=== PATIENT | female | born 1940 | race African-American/Black ===

== ENCOUNTER 2021-02-04 22:58 | Inpatient (IN) | payer MEDICARE ==
[~2021-02-04] VITALS: Ht 167.6 cm; Wt 87.5 kg
[2021-02-05] VITALS (61 sets, daily range): BP systolic 92–155; BP diastolic 27–82
[2021-02-05 00:32] LABS: HEMATOCRIT. 40.1 % (36.0-48.0); HEMOGLOBIN. 13.1 g/dL (12.0-16.0); MEAN CORPUSCULAR HEMOGLOBIN 30.4 pg (28.0-32.0); MEAN CORPUSCULAR VOLUME 92.8 fL (81.0-99.0); MEAN PLATELET VOLUME 9.8 fl (7.4-10.4); PLATELET 192 x1000/uL (130-400); RED BLOOD CELL COUNT 4.32 mill/uL (4.2-5.4); RED CELL DISTRIBUTION WIDTH 14.6 % (11.6-14.6)
[2021-02-05 00:42] LABS: CHLORIDE 103 mEq/L (98-107)
[2021-02-05 00:47] LABS: ETHANOL BLOOD < 10 mg/dL
[2021-02-05 01:57] LABS: CLARITY URINE TURBID (CLEAR); COLOR URINE YELLOW (YELLOW); KETONES URINE 2+ (NEGATIVE); LEUKOCYTE ESTERASE URINE 2+ (NEGATIVE); NITRITE URINE POSITIVE (NEGATIVE); OCCULT BLOOD URINE 3+ (NEGATIVE); PROTEIN URINE 3+ (NEGATIVE); SPECIFIC GRAVITY URINE 1.026 (1.005-1.030)
[2021-02-05 02:24] LABS: *BARBITURATES SCREEN URINE NEGATIVE (NEGATIVE); *BENZODIAZEPINES SCREEN URINE NEGATIVE (NEGATIVE); *COCAINE SCREEN URINE NEGATIVE (NEGATIVE)
[2021-02-05 02:25] LABS: *AMPHETAMINES SCREEN URINE NEGATIVE (NEGATIVE); CANNABINOID URINE SCREEN NEGATIVE (NEGATIVE); METHADONE URINE SCREEN NEGATIVE (NEGATIVE); OPIATES URINE SCREEN NEGATIVE (NEGATIVE); PHENCYCLIDINE URINE SCREEN NEGATIVE (NEGATIVE)
[2021-02-05] MEDS ORDERED: CEFTRIAXONE 1 G PREMIX 50 ML IV ONE (03:30)
[2021-02-05 03:36] LABS: PLATELET ESTIMATE NORMAL
[2021-02-05] MEDS ORDERED: SODIUM CHLORIDE 0.9% 100 ML IV ONE (04:15)
[2021-02-05] MEDS ORDERED: IOHEXOL-350 100 ML BOTTLE ONE (05:38)
[2021-02-05] MEDS ORDERED: MANNITOL 12.5G (25%) VIAL 50ML IV ONE (07:30)
[2021-02-05] MEDS ORDERED: IPRATROPIUM/ALBUTEROL 0.5-3(2.5)MG/3ML NEB NEB PRN (07:45)
[2021-02-05] MEDS ORDERED: NITROGLYCERIN 0.4MG TABLET SL SL PRN (07:45)
[2021-02-05] MEDS ORDERED: DEXTROSE 50% WATER 50ML SYRINGE IV PRN (07:45)
[2021-02-05] MEDS ORDERED: ACETAMINOPHEN 650MG SUPP PR PRN ×2 (07:45)
[2021-02-05] MEDS ORDERED: ONDANSETRON HCL 4MG/2ML INJ IV PRN (07:45)
[2021-02-05 08:25] LABS: FOLIC ACID (FOLATE) SERUM 8.5 ng/mL (>5.38)
[2021-02-05] MEDS ORDERED: CEFTRIAXONE 1 G PREMIX 50 ML IV SCH (09:00)
[2021-02-05] MEDS ORDERED: NICARDIPINE 100 MG in SODIUM CHLORIDE 0.9% 60 ML IV PRN (09:45)
[2021-02-05] MEDS ORDERED: MORPHINE SULFATE 10 MG/ML CPJ IV NR (10:00)
[2021-02-05] MEDS: MUPIROCIN 2% OINT 22GM TOP SCH ×2 (10:54→21:47)
[2021-02-05] MEDS: DEXT 5%/LACTATED RINGERS 1,000 ML IV SCH (10:55)
[2021-02-05] MEDS ORDERED: MORPHINE SULFATE 2 MG/ML CPJ (NOT FOR IM USE) IV PRN (11:00)
[2021-02-05] MEDS ORDERED: NALOXONE HCL 0.4MG/ML VIAL IV PRN (11:00)
[2021-02-05] MEDS: NICARDIPINE 100 MG in SODIUM CHLORIDE 0.9% 60 ML IV PRN (11:19)
[2021-02-05] MEDS: CEFAZOLIN 1000MG PREMIX 50 ML IV SCH ×2 (11:25→18:13)
[2021-02-05] MEDS: BLOOD SUGAR DIAGNOSTIC STRIP TEST SCH ×3 (12:22→21:46)
[2021-02-05] MEDS: DEXAMETHASONE 4MG/ML 1ML VIAL IV SCH ×2 (12:32→17:15)
[2021-02-05] MEDS: PANTOPRAZOLE SODIUM 40 MG/VIAL IV SCH (12:32)
[2021-02-05] MEDS: INSULIN LISPRO 100 UNITS/ML SUBCUT SCH ×3 (12:33→21:46)
[2021-02-05] MEDS: LEVETIRACETAM 500MG PREMIX 100 ML IV SCH ×2 (12:43→21:45)
[2021-02-05] MEDS: INSULIN GLARGINE UD 100 UNITS/ML SYR SUBCUT SCH ×2 (13:44→21:47)
[2021-02-05] MEDS ORDERED: CEFAZOLIN SODIUM 1000MG/VIAL IV SCH (14:00)
[2021-02-05] MEDS: LEVOFLOXACIN 500MG PREMIX 100 ML IV SCH (14:23)
[2021-02-05] MEDS ORDERED: IPRATROPIUM/ALBUTEROL 0.5-3(2.5)MG/3ML NEB HHN PRN (18:30)
[2021-02-05 20:58] LABS: TOTAL IRON BINDING CAPACITY 360 ug/dL (250-450)
[2021-02-05 21:01] LABS: CREATINE KINASE 69 IU/L (26-192)
[2021-02-05 21:02] LABS: CREATINE KINASE MB FRACTION < 1.0 ng/mL (0.5-3.6)
[2021-02-06] VITALS (99 sets, daily range): BP systolic 85–144; BP diastolic 41–104
[2021-02-06] MEDS: DEXT 5%/LACTATED RINGERS 1,000 ML IV SCH ×2 (00:25→17:46)
[2021-02-06] MEDS: DEXAMETHASONE 4MG/ML 1ML VIAL IV SCH ×2 (00:25→05:42)
[2021-02-06 00:36] LABS: CREATINE KINASE 71 IU/L (26-192)
[2021-02-06 00:37] LABS: CREATINE KINASE MB FRACTION < 1.0 ng/mL (0.5-3.6)
[2021-02-06] MEDS: CEFAZOLIN 1000MG PREMIX 50 ML IV SCH ×3 (03:26→18:42)
[2021-02-06] MEDS ORDERED: CEFTRIAXONE 1,000 MG in DEXTROSE 5% WATER 50 ML IV SCH (05:00)
[2021-02-06] MEDS: MUPIROCIN 2% OINT 22GM TOP SCH ×3 (05:42→21:27)
[2021-02-06] MEDS: BLOOD SUGAR DIAGNOSTIC STRIP TEST SCH ×4 (06:17→21:26)
[2021-02-06] MEDS: INSULIN LISPRO 100 UNITS/ML SUBCUT SCH ×4 (06:18→21:30)
[2021-02-06 06:19] LABS: CHLORIDE 108 mEq/L (98-107)
[2021-02-06 06:23] LABS: HEMATOCRIT. 32.3 % (36.0-48.0); HEMOGLOBIN. 10.9 g/dL (12.0-16.0); MEAN CORPUSCULAR HEMOGLOBIN 31.3 pg (28.0-32.0); MEAN CORPUSCULAR VOLUME 92.8 fL (81.0-99.0); RED BLOOD CELL COUNT 3.48 mill/uL (4.2-5.4); RED CELL DISTRIBUTION WIDTH 14.6 % (11.6-14.6)
[2021-02-06 06:29] LABS: PHOSPHORUS 1.1 mg/dL (2.5-4.9)
[2021-02-06 06:30] LABS: LDL CHOLESTEROL 92 mg/dL (5-100)
[2021-02-06 06:32] LABS: HDL CHOLESTEROL 51 mg/dL (40-59)
[2021-02-06 06:46] LABS: INR 1.2; PROTHROMBIN TIME 12.4 sec (9.6-11.0)
[2021-02-06 08:37] LABS: PLATELET 157 x1000/uL (130-400)
[2021-02-06 08:47] LABS: PLATELET ESTIMATE NORMAL
[2021-02-06] MEDS: LEVETIRACETAM 500MG PREMIX 100 ML IV SCH ×2 (09:52→21:26)
[2021-02-06] MEDS: PANTOPRAZOLE SODIUM 40 MG/VIAL IV SCH (09:52)
[2021-02-06 10:29] LABS: BG BASE EXCESS 0.1 mmol/L (-2.0-2.0); BG CARBOXYHEMOGLOBIN 0.7 % (0.5-1.5); BG DEOXYHEMOGLOBIN 4.5 % (0.0-5.0); BG FRACTION INSPIRED OXYGEN 28; BG HCO3 ACT 24.4 mmol/L (22.0-26.0); BG METHEMOGLOBIN 0.3 % (0.0-1.5); BG OXYGEN SATURATION 95.5 % (92.0-98.5); BG OXYHEMOGLOBIN 94.5 % (94.0-97.0); BG PCO2 37.9 mmHg (35.0-45.0); BG PH 7.426 (7.350-7.450); BG PO2 80.4 mmHg (75.0-100.0); BG SAMPLE SITE LEFT RADIAL; BG VENT MODE NASAL CANNULA
[2021-02-06] MEDS: INSULIN GLARGINE UD 100 UNITS/ML SYR SUBCUT SCH ×2 (10:41→21:27)
[2021-02-06] MEDS ORDERED: SODIUM CHLORIDE 0.9% 200 ML IV NR (12:45)
[2021-02-06] MEDS ORDERED: SODIUM CHLORIDE 0.9% 1000ML BAG (SEPSIS BOLUS) IV ONE (12:45)
[2021-02-06] MEDS ORDERED: MORPHINE SULFATE 2 MG/ML CPJ (NOT FOR IM USE) IV NR (12:45)
[2021-02-06] MEDS: LEVOFLOXACIN 500MG PREMIX 100 ML IV SCH (14:18)
[2021-02-07] VITALS (93 sets, daily range): BP systolic 91–161; BP diastolic 44–102
[2021-02-07] MEDS: CEFAZOLIN 1000MG PREMIX 50 ML IV SCH ×2 (02:48→12:00)
[2021-02-07 05:57] LABS: HEMOGLOBIN. 11.4 g/dL (12.0-16.0); MEAN CORPUSCULAR HEMOGLOBIN 30.9 pg (28.0-32.0); MEAN CORPUSCULAR VOLUME 92.4 fL (81.0-99.0); MEAN PLATELET VOLUME 10.9 fl (7.4-10.4); PLATELET 126 x1000/uL (130-400); RED BLOOD CELL COUNT 3.68 mill/uL (4.2-5.4); RED CELL DISTRIBUTION WIDTH 15.1 % (11.6-14.6)
[2021-02-07] MEDS: BLOOD SUGAR DIAGNOSTIC STRIP TEST SCH ×4 (06:08→20:17)
[2021-02-07] MEDS: INSULIN LISPRO 100 UNITS/ML SUBCUT SCH ×4 (06:09→20:18)
[2021-02-07 06:12] LABS: CHLORIDE 111 mEq/L (98-107)
[2021-02-07] MEDS: MUPIROCIN 2% OINT 22GM TOP SCH ×3 (06:15→23:25)
[2021-02-07] MEDS: LEVETIRACETAM 500MG PREMIX 100 ML IV SCH ×2 (08:47→20:13)
[2021-02-07] MEDS: PANTOPRAZOLE SODIUM 40 MG/VIAL IV SCH (08:47)
[2021-02-07] MEDS: DEXT 5%/LACTATED RINGERS 1,000 ML IV SCH (08:47)
[2021-02-07] MEDS: INSULIN GLARGINE UD 100 UNITS/ML SYR SUBCUT SCH ×2 (10:00→22:00)
[2021-02-07 10:33] LABS: PLATELET ESTIMATE SLIGHTLY DECREASED
[2021-02-07] MEDS ORDERED: MORPHINE SULFATE 2 MG/ML CPJ (NOT FOR IM USE) IV PRN (11:00)
[2021-02-07] MEDS: LEVOFLOXACIN 500MG PREMIX 100 ML IV SCH (14:45)
[2021-02-08] VITALS (95 sets, daily range): BP systolic 102–159; BP diastolic 39–116
[2021-02-08] MEDS: NICARDIPINE 100 MG in SODIUM CHLORIDE 0.9% 60 ML IV PRN (01:33)
[2021-02-08] MEDS: DEXT 5%/LACTATED RINGERS 1,000 ML IV SCH ×2 (03:00→20:19)
[2021-02-08] MEDS: MUPIROCIN 2% OINT 22GM TOP SCH ×2 (06:00→14:00)
[2021-02-08] MEDS: BLOOD SUGAR DIAGNOSTIC STRIP TEST SCH ×4 (06:20→20:23)
[2021-02-08] MEDS: INSULIN LISPRO 100 UNITS/ML SUBCUT SCH ×4 (06:21→21:05)
[2021-02-08] MEDS: PANTOPRAZOLE SODIUM 40 MG/VIAL IV SCH (08:42)
[2021-02-08] MEDS: LEVETIRACETAM 500MG PREMIX 100 ML IV SCH ×2 (08:42→20:17)
[2021-02-08] MEDS: INSULIN GLARGINE UD 100 UNITS/ML SYR SUBCUT SCH ×2 (10:00→21:06)
[2021-02-08] MEDS: LEVOFLOXACIN 500MG PREMIX 100 ML IV SCH (15:58)
[2021-02-09] VITALS (100 sets, daily range): BP systolic 95–160; BP diastolic 42–88
[2021-02-09] MEDS: BLOOD SUGAR DIAGNOSTIC STRIP TEST SCH ×4 (05:59→20:58)
[2021-02-09] MEDS: INSULIN LISPRO 100 UNITS/ML SUBCUT SCH ×4 (06:00→21:19)
[2021-02-09] MEDS: NICARDIPINE 100 MG in SODIUM CHLORIDE 0.9% 60 ML IV PRN (07:28)
[2021-02-09] MEDS: PANTOPRAZOLE SODIUM 40 MG/VIAL IV SCH (08:21)
[2021-02-09] MEDS: LEVETIRACETAM 500MG PREMIX 100 ML IV SCH ×2 (08:21→20:58)
[2021-02-09] MEDS: INSULIN GLARGINE UD 100 UNITS/ML SYR SUBCUT SCH ×2 (10:00→21:17)
[2021-02-09] MEDS: DEXT 5%/LACTATED RINGERS 1,000 ML IV SCH ×2 (11:30→14:38)
[2021-02-09] MEDS: AMLODIPINE 10MG TABLET PO SCH (13:00)
[2021-02-09] MEDS: LEVOFLOXACIN 500MG PREMIX 100 ML IV SCH (14:37)
[2021-02-10] VITALS (91 sets, daily range): BP systolic 103–151; BP diastolic 55–100
[2021-02-10] MEDS: BLOOD SUGAR DIAGNOSTIC STRIP TEST SCH ×4 (05:55→21:30)
[2021-02-10] MEDS: INSULIN LISPRO 100 UNITS/ML SUBCUT SCH ×4 (06:01→21:00)
[2021-02-10] MEDS: DEXT 5%/LACTATED RINGERS 1,000 ML IV SCH (06:01)
[2021-02-10] MEDS: PANTOPRAZOLE SODIUM 40 MG/VIAL IV SCH (08:50)
[2021-02-10] MEDS: LEVETIRACETAM 500MG PREMIX 100 ML IV SCH ×2 (08:50→21:42)
[2021-02-10] MEDS: AMLODIPINE 10MG TABLET PO SCH ×2 (08:51→08:54)
[2021-02-10] MEDS: INSULIN GLARGINE UD 100 UNITS/ML SYR SUBCUT SCH ×2 (09:02→21:43)
[2021-02-10] MEDS: NICARDIPINE 100 MG in SODIUM CHLORIDE 0.9% 60 ML IV PRN (12:58)
[2021-02-10] MEDS: LEVOFLOXACIN 500MG PREMIX 100 ML IV SCH (16:32)
[2021-02-11] VITALS (90 sets, daily range): BP systolic 96–142; BP diastolic 54–90
[2021-02-11] MEDS: DEXT 5%/LACTATED RINGERS 1,000 ML IV SCH ×2 (01:34→19:18)
[2021-02-11] MEDS: BLOOD SUGAR DIAGNOSTIC STRIP TEST SCH ×4 (06:23→20:20)
[2021-02-11] MEDS: INSULIN LISPRO 100 UNITS/ML SUBCUT SCH ×4 (06:23→20:31)
[2021-02-11] MEDS: LEVETIRACETAM 500MG PREMIX 100 ML IV SCH ×2 (08:30→20:31)
[2021-02-11] MEDS: PANTOPRAZOLE SODIUM 40 MG/VIAL IV SCH (08:30)
[2021-02-11] MEDS: AMLODIPINE 10MG TABLET PO SCH (08:31)
[2021-02-11] MEDS: INSULIN GLARGINE UD 100 UNITS/ML SYR SUBCUT SCH ×2 (10:00→21:05)
[2021-02-11] MEDS ORDERED: AMLODIPINE 5MG TABLET PO SCH (10:45)
[2021-02-11] MEDS ORDERED: AMLODIPINE 5MG TABLET PO NR (10:45)
[2021-02-12] VITALS (52 sets, daily range): BP systolic 100–132; BP diastolic 30–71
[2021-02-12] MEDS: DEXT 5%/LACTATED RINGERS 1,000 ML IV SCH ×2 (00:20→08:07)
[2021-02-12] MEDS: INSULIN LISPRO 100 UNITS/ML SUBCUT SCH ×4 (05:25→20:23)
[2021-02-12] MEDS: BLOOD SUGAR DIAGNOSTIC STRIP TEST SCH ×4 (05:25→20:23)
[2021-02-12 06:01] LABS: HEMATOCRIT. 31.7 % (36.0-48.0); HEMOGLOBIN. 10.6 g/dL (12.0-16.0); MEAN CORPUSCULAR HEMOGLOBIN 30.3 pg (28.0-32.0); MEAN CORPUSCULAR VOLUME 90.6 fL (81.0-99.0); MEAN PLATELET VOLUME 10.2 fl (7.4-10.4); PLATELET 215 x1000/uL (130-400); RED CELL DISTRIBUTION WIDTH 14.7 % (11.6-14.6)
[2021-02-12 06:10] LABS: CHLORIDE 106 mEq/L (98-107)
[2021-02-12] MEDS: PANTOPRAZOLE SODIUM 40 MG/VIAL IV SCH (08:07)
[2021-02-12] MEDS: LEVETIRACETAM 500MG PREMIX 100 ML IV SCH ×2 (08:07→20:23)
[2021-02-12] MEDS ORDERED: MORPHINE SULFATE 2 MG/ML CPJ (NOT FOR IM USE) IV PRN (09:15)
[2021-02-12] MEDS ORDERED: POTASSIUM CHLORIDE INJ 40 MEQ in DEXT 5% WATER 250 ML IV ONE (09:30)
[2021-02-12] MEDS ORDERED: POTASSIUM CHLORIDE 20MEQ TABLET SR PO SCH (09:30)
[2021-02-12] MEDS: INSULIN GLARGINE UD 100 UNITS/ML SYR SUBCUT SCH ×2 (10:00→21:51)
[2021-02-12] MEDS: KCL 20MEQ/100ML PREMIX 100 ML IV SCH ×2 (11:15→13:57)
[2021-02-12] MEDS: AMLODIPINE 5MG TABLET PO SCH (11:16)
[2021-02-12 16:33] LABS: PLATELET ESTIMATE NORMAL
[2021-02-12] MEDS ORDERED: INSULIN GLARGINE UD 100 UNITS/ML SYR SUBCUT SCH (17:00)
[2021-02-12] MEDS ORDERED: NALOXONE HCL 0.4MG/ML VIAL IV PRN (17:30)
[2021-02-13] VITALS (24 sets, daily range): BP systolic 122–159; BP diastolic 63–84
[2021-02-13] MEDS: INSULIN LISPRO 100 UNITS/ML SUBCUT SCH ×4 (07:00→21:58)
[2021-02-13] MEDS: BLOOD SUGAR DIAGNOSTIC STRIP TEST SCH ×4 (07:06→21:55)
[2021-02-13] MEDS: PANTOPRAZOLE SODIUM 40 MG/VIAL IV SCH (08:30)
[2021-02-13] MEDS: LEVETIRACETAM 500MG PREMIX 100 ML IV SCH ×2 (08:30→21:57)
[2021-02-13] MEDS: AMLODIPINE 5MG TABLET PO SCH (08:30)
[2021-02-13 12:02] LABS: INR 1.1; PROTHROMBIN TIME 12.2 sec (9.6-11.0)
[2021-02-13] MEDS: DEXT 5%/LACTATED RINGERS 1,000 ML IV SCH (17:18)
[2021-02-13] MEDS: INSULIN GLARGINE UD 100 UNITS/ML SYR SUBCUT SCH (22:11)
[2021-02-14] VITALS (77 sets, daily range): BP systolic 91–178; BP diastolic 38–97
[2021-02-14 05:45] LABS: HEMATOCRIT. 31.3 % (36.0-48.0); HEMOGLOBIN. 9.9 g/dL (12.0-16.0); MEAN CORPUSCULAR HEMOGLOBIN 28.6 pg (28.0-32.0); MEAN CORPUSCULAR VOLUME 90.3 fL (81.0-99.0); MEAN PLATELET VOLUME 8.8 fl (7.4-10.4); PLATELET 299 x1000/uL (130-400); RED BLOOD CELL COUNT 3.46 mill/uL (4.2-5.4); RED CELL DISTRIBUTION WIDTH 14.5 % (11.6-14.6)
[2021-02-14 05:52] LABS: CHLORIDE 105 mEq/L (98-107)
[2021-02-14 06:04] LABS: PHOSPHORUS 2.1 mg/dL (2.5-4.9)
[2021-02-14] MEDS: BLOOD SUGAR DIAGNOSTIC STRIP TEST SCH ×4 (06:28→21:31)
[2021-02-14] MEDS: INSULIN LISPRO 100 UNITS/ML SUBCUT SCH ×4 (06:29→21:47)
[2021-02-14] MEDS ORDERED: GENTAMICIN SULF 40MG/ML 2ML VIAL ONE (06:38)
[2021-02-14] MEDS ORDERED: LIDOCAINE HCL/EPINEPHRINE 1%-EPI 1:100,000 30 ML VIAL INFIL ONE (06:38)
[2021-02-14] MEDS ORDERED: BACITRACIN 15GM TUBE TOP ONE (06:39)
[2021-02-14] MEDS ORDERED: THROMBIN (BOVINE) 5000 UNITS/VIAL TOP ONE (06:39)
[2021-02-14] MEDS: NICARDIPINE 100 MG in SODIUM CHLORIDE 0.9% 60 ML IV PRN (08:38)
[2021-02-14] MEDS: AMLODIPINE 5MG TABLET PO SCH (08:48)
[2021-02-14] MEDS: DEXT 5%/LACTATED RINGERS 1,000 ML IV SCH (08:52)
[2021-02-14] MEDS: LEVETIRACETAM 500MG PREMIX 100 ML IV SCH ×2 (08:52→20:56)
[2021-02-14] MEDS: PANTOPRAZOLE SODIUM 40 MG/VIAL IV SCH (08:53)
[2021-02-14] MEDS ORDERED: POTASSIUM PHOS,M-BASIC-D-BASIC 20 MMOL in DEXT 5% WATER 243.3333 ML IV NR (09:00)
[2021-02-14] MEDS ORDERED: KCL 20MEQ/100ML PREMIX 100 ML IV NR (09:00)
[2021-02-14] MEDS ORDERED: MAGNESIUM 2 G PREMIX 50 ML IV NR (09:00)
[2021-02-14 09:25] LABS: INR 1.1; PROTHROMBIN TIME 11.5 sec (9.6-11.0)
[2021-02-14 10:33] LABS: BG BASE EXCESS 1.6 mmol/L (-2.0-2.0); BG CARBOXYHEMOGLOBIN 0.4 % (0.5-1.5); BG DEOXYHEMOGLOBIN 3.4 % (0.0-5.0); BG FRACTION INSPIRED OXYGEN 40; BG HCO3 ACT 25.6 mmol/L (22.0-26.0); BG METHEMOGLOBIN 0.3 % (0.0-1.5); BG OXYGEN SATURATION 96.6 % (92.0-98.5); BG OXYHEMOGLOBIN 95.9 % (94.0-97.0); BG PCO2 37.7 mmHg (35.0-45.0); BG PH 7.449 (7.350-7.450); BG PO2 98.9 mmHg (75.0-100.0); BG SAMPLE SITE RIGHT RADIAL; BG TOTAL HEMOGLOBIN 11.4 g/dL (12.0-18.0); BG VENT MODE NASAL CANNULA
[2021-02-14] MEDS ORDERED: SODIUM CHLORIDE 0.9% 500 ML IV ONE (18:00)
[2021-02-14] MEDS: INSULIN GLARGINE UD 100 UNITS/ML SYR SUBCUT SCH (21:46)
[2021-02-15] VITALS (76 sets, daily range): BP systolic 93–160; BP diastolic 53–98
[2021-02-15] MEDS: DEXT 5%/LACTATED RINGERS 1,000 ML IV SCH ×3 (00:15→10:00)
[2021-02-15 01:12] LABS: PLATELET ESTIMATE NORMAL
[2021-02-15] MEDS: BLOOD SUGAR DIAGNOSTIC STRIP TEST SCH ×4 (06:22→20:13)
[2021-02-15] MEDS: INSULIN LISPRO 100 UNITS/ML SUBCUT SCH ×4 (06:23→21:38)
[2021-02-15] MEDS ORDERED: THROMBIN (BOVINE) 5000 UNITS/VIAL TOP ONE (06:50)
[2021-02-15] MEDS ORDERED: POLYMYXIN B SULFATE 500000 UNITS/VIAL ONE (06:51)
[2021-02-15] MEDS ORDERED: NEOSTIGMINE METHYLSULFATE 1MG/ML 10 ML VIAL ONE ×2 (07:34→09:19)
[2021-02-15] MEDS ORDERED: ONDANSETRON HCL 4MG/2ML INJ ONE (07:34)
[2021-02-15] MEDS ORDERED: MIDAZOLAM HCL 2 MG/2 ML VIAL ONE (07:34)
[2021-02-15] MEDS ORDERED: PROPOFOL 200MG/20ML VIAL IV ONE (07:34)
[2021-02-15] MEDS ORDERED: FENTANYL CITRATE/PF 50MCG/ML 2ML VIAL ONE (07:34)
[2021-02-15] MEDS ORDERED: GLYCOPYRROLATE 0.2 MG/ML 2ML VIAL ONE ×3 (07:37→09:25)
[2021-02-15] MEDS ORDERED: ROCURONIUM BROMIDE 10MG/ML VIAL 5ML IV ONE ×2 (08:14→09:16)
[2021-02-15] MEDS: AMLODIPINE 5MG TABLET PO SCH (09:00)
[2021-02-15] MEDS ORDERED: PHENYLEPHRINE HCL 10 MG/ML 1ML (IV VIAL) IV ONE (09:19)
[2021-02-15] MEDS ORDERED: BACITRACIN/POLYMYXIN B SULFATE OINT 28.35GM TOP ONE (09:26)
[2021-02-15] MEDS ORDERED: NALOXONE HCL 0.4MG/ML VIAL IV PRN (09:30)
[2021-02-15] MEDS: LEVETIRACETAM 500MG PREMIX 100 ML IV SCH ×2 (09:41→20:48)
[2021-02-15] MEDS: PANTOPRAZOLE SODIUM 40 MG/VIAL IV SCH (09:41)
[2021-02-15 10:35] LABS: CHLORIDE 106 mEq/L (98-107)
[2021-02-15 10:40] LABS: HEMATOCRIT. 30.4 % (36.0-48.0); HEMOGLOBIN. 10.2 g/dL (12.0-16.0); MEAN CORPUSCULAR HEMOGLOBIN 30.9 pg (28.0-32.0); MEAN CORPUSCULAR VOLUME 91.7 fL (81.0-99.0); MEAN PLATELET VOLUME 8.8 fl (7.4-10.4); PLATELET 295 x1000/uL (130-400); RED BLOOD CELL COUNT 3.31 mill/uL (4.2-5.4); RED CELL DISTRIBUTION WIDTH 14.1 % (11.6-14.6)
[2021-02-15 10:42] LABS: PHOSPHORUS 2.9 mg/dL (2.5-4.9)
[2021-02-15 10:55] LABS: BG BASE EXCESS 4.4 mmol/L (-2.0-2.0); BG DEOXYHEMOGLOBIN 5.7 % (0.0-5.0); BG FRACTION INSPIRED OXYGEN 50; BG HCO3 ACT 30.2 mmol/L (22.0-26.0); BG METHEMOGLOBIN 0.3 % (0.0-1.5); BG OXYGEN SATURATION 94.3 % (92.0-98.5); BG PCO2 51.2 mmHg (35.0-45.0); BG PH 7.389 (7.350-7.450); BG PO2 78.8 mmHg (75.0-100.0); BG SAMPLE SITE LEFT RADIAL; BG TOTAL HEMOGLOBIN 10.2 g/dL (12.0-18.0); BG TOTAL RESPIRATORY RATE 14 b/min; BG VENT MODE VENT - CPAP
[2021-02-15] MEDS: CEFAZOLIN 1000MG PREMIX 50 ML IV SCH ×2 (12:03→19:08)
[2021-02-15 12:29] LABS: PLATELET ESTIMATE NORMAL
[2021-02-15 13:26] LABS: BG BASE EXCESS 4.2 mmol/L (-2.0-2.0); BG CARBOXYHEMOGLOBIN 0.5 % (0.5-1.5); BG DEOXYHEMOGLOBIN 5.1 % (0.0-5.0); BG FRACTION INSPIRED OXYGEN 32; BG HCO3 ACT 30.3 mmol/L (22.0-26.0); BG METHEMOGLOBIN 0.3 % (0.0-1.5); BG OXYGEN SATURATION 94.9 % (92.0-98.5); BG OXYHEMOGLOBIN 94.1 % (94.0-97.0); BG PCO2 52.9 mmHg (35.0-45.0); BG PH 7.376 (7.350-7.450); BG PO2 80.7 mmHg (75.0-100.0); BG SAMPLE SITE LEFT RADIAL; BG TOTAL HEMOGLOBIN 10.8 g/dL (12.0-18.0); BG VENT MODE NASAL CANNULA
[2021-02-15] MEDS ORDERED: CEFAZOLIN SODIUM 1000MG/VIAL IV SCH (14:00)
[2021-02-15] MEDS: METOPROLOL TARTRATE 25MG TABLET NG SCH ×2 (18:47→22:30)
[2021-02-15] MEDS: INSULIN GLARGINE UD 100 UNITS/ML SYR SUBCUT SCH (21:39)
[2021-02-16] VITALS (62 sets, daily range): BP systolic 104–158; BP diastolic 41–84
[2021-02-16] MEDS: CEFAZOLIN 1000MG PREMIX 50 ML IV SCH ×3 (02:14→18:19)
[2021-02-16] MEDS: MORPHINE SULFATE 2 MG/ML CPJ (NOT FOR IM USE) IV PRN ×3 (03:19→12:40)
[2021-02-16 05:52] LABS: CHLORIDE 106 mEq/L (98-107)
[2021-02-16 06:02] LABS: HEMOGLOBIN. 10.3 g/dL (12.0-16.0); MEAN CORPUSCULAR HEMOGLOBIN 30.3 pg (28.0-32.0); MEAN CORPUSCULAR VOLUME 91.3 fL (81.0-99.0); PLATELET 350 x1000/uL (130-400); RED CELL DISTRIBUTION WIDTH 14.7 % (11.6-14.6)
[2021-02-16] MEDS: BLOOD SUGAR DIAGNOSTIC STRIP TEST SCH ×4 (06:07→21:36)
[2021-02-16] MEDS: INSULIN LISPRO 100 UNITS/ML SUBCUT SCH ×4 (06:07→21:37)
[2021-02-16] MEDS: PANTOPRAZOLE SODIUM 40 MG/VIAL IV SCH (08:38)
[2021-02-16] MEDS: AMLODIPINE 5MG TABLET PO SCH (08:38)
[2021-02-16] MEDS: LEVETIRACETAM 500MG PREMIX 100 ML IV SCH ×2 (08:38→20:28)
[2021-02-16] MEDS: METOPROLOL TARTRATE 25MG TABLET NG SCH ×2 (09:00→20:29)
[2021-02-16] MEDS ORDERED: LACTULOSE 20G/30ML UDC PO NR (10:00)
[2021-02-16] MEDS: LOSARTAN POTASSIUM 25 MG TABLET PO SCH (11:07)
[2021-02-16] MEDS: CLONIDINE 0.1MG TABLET PO PRN (18:44)
[2021-02-16] MEDS: LACTULOSE 20G/30ML UDC PO SCH (21:36)
[2021-02-16] MEDS: INSULIN GLARGINE UD 100 UNITS/ML SYR SUBCUT SCH (21:38)
[2021-02-17] VITALS (49 sets, daily range): BP systolic 123–170; BP diastolic 53–88
[2021-02-17] MEDS: CEFAZOLIN 1000MG PREMIX 50 ML IV SCH ×2 (02:27→10:04)
[2021-02-17] MEDS: DEXT 5%/LACTATED RINGERS 1,000 ML IV SCH ×3 (02:50→20:12)
[2021-02-17] MEDS: CLONIDINE 0.1MG TABLET PO PRN (02:59)
[2021-02-17] MEDS: BLOOD SUGAR DIAGNOSTIC STRIP TEST SCH ×4 (06:15→20:12)
[2021-02-17 06:17] LABS: PLATELET ESTIMATE NORMAL
[2021-02-17] MEDS: MORPHINE SULFATE 2 MG/ML CPJ (NOT FOR IM USE) IV PRN (06:32)
[2021-02-17] MEDS: INSULIN LISPRO 100 UNITS/ML SUBCUT SCH ×4 (06:33→20:12)
[2021-02-17] MEDS: LEVETIRACETAM 500MG PREMIX 100 ML IV SCH ×2 (08:57→20:11)
[2021-02-17] MEDS: AMLODIPINE 5MG TABLET PO SCH (08:57)
[2021-02-17] MEDS: LOSARTAN POTASSIUM 25 MG TABLET PO SCH (08:57)
[2021-02-17] MEDS: PANTOPRAZOLE SODIUM 40 MG/VIAL IV SCH (08:57)
[2021-02-17] MEDS: METOPROLOL TARTRATE 25MG TABLET NG SCH ×2 (08:58→20:11)
[2021-02-17] MEDS: METOCLOPRAMIDE HCL 10MG/2ML VIAL IV SCH ×3 (12:27→23:58)
[2021-02-17] MEDS: LACTULOSE 20G/30ML UDC PO SCH (20:11)
[2021-02-17] MEDS: INSULIN GLARGINE UD 100 UNITS/ML SYR SUBCUT SCH (23:58)
[2021-02-18] VITALS (31 sets, daily range): BP systolic 128–174; BP diastolic 65–115
[2021-02-18] MEDS: CLONIDINE 0.1MG TABLET PO PRN ×2 (00:45→06:51)
[2021-02-18] MEDS: METOCLOPRAMIDE HCL 10MG/2ML VIAL IV SCH ×3 (05:51→18:41)
[2021-02-18] MEDS: BLOOD SUGAR DIAGNOSTIC STRIP TEST SCH ×4 (05:51→21:00)
[2021-02-18 06:01] LABS: CHLORIDE 97 mEq/L (98-107)
[2021-02-18] MEDS: INSULIN LISPRO 100 UNITS/ML SUBCUT SCH ×4 (06:05→21:00)
[2021-02-18 06:16] LABS: INR 1.1; PROTHROMBIN TIME 11.7 sec (9.6-11.0)
[2021-02-18 06:22] LABS: HEMATOCRIT. 29.9 % (36.0-48.0); HEMOGLOBIN. 10.2 g/dL (12.0-16.0); MEAN CORPUSCULAR HEMOGLOBIN 30.7 pg (28.0-32.0); MEAN CORPUSCULAR VOLUME 90.4 fL (81.0-99.0); MEAN PLATELET VOLUME 9.2 fl (7.4-10.4); PLATELET 374 x1000/uL (130-400); RED BLOOD CELL COUNT 3.31 mill/uL (4.2-5.4); RED CELL DISTRIBUTION WIDTH 14.1 % (11.6-14.6)
[2021-02-18] MEDS: METOPROLOL TARTRATE 25MG TABLET NG SCH ×2 (08:56→21:00)
[2021-02-18] MEDS: LOSARTAN POTASSIUM 25 MG TABLET PO SCH (08:56)
[2021-02-18] MEDS: AMLODIPINE 5MG TABLET PO SCH (08:56)
[2021-02-18] MEDS: LEVETIRACETAM 500MG PREMIX 100 ML IV SCH (08:56)
[2021-02-18] MEDS: PANTOPRAZOLE SODIUM 40 MG/VIAL IV SCH (08:56)
[2021-02-18] MEDS: DEXT 5%/LACTATED RINGERS 1,000 ML IV SCH (09:15)
[2021-02-18] MEDS ORDERED: BISACODYL 10MG SUPP PR SCH (09:45)
[2021-02-18 09:47] LABS: PLATELET ESTIMATE NORMAL
[2021-02-18] MEDS ORDERED: POTASSIUM CHLORIDE 20MEQ/PACKET PO NR (11:30)
[2021-02-18] MEDS: INSULIN GLARGINE UD 100 UNITS/ML SYR SUBCUT SCH (22:00)
[2021-02-19] MEDS: LACTULOSE 20G/30ML UDC PO SCH ×2 (00:23→21:51)
[2021-02-19] MEDS: LEVETIRACETAM 500MG PREMIX 100 ML IV SCH ×3 (00:23→21:50)
[2021-02-19] MEDS: METOCLOPRAMIDE HCL 10MG/2ML VIAL IV SCH ×5 (00:24→23:55)
[2021-02-19] MEDS: IPRATROPIUM/ALBUTEROL 0.5-3(2.5)MG/3ML NEB HHN SCH ×3 (00:35→17:01)
[2021-02-19 02:56] VITALS: BP 159/77
[2021-02-19 04:00] VITALS: BP 158/78
[2021-02-19] MEDS: DEXT 5%/LACTATED RINGERS 1,000 ML IV SCH ×2 (05:57→21:55)
[2021-02-19] MEDS: BLOOD SUGAR DIAGNOSTIC STRIP TEST SCH ×4 (06:12→21:51)
[2021-02-19] MEDS: INSULIN LISPRO 100 UNITS/ML SUBCUT SCH ×4 (06:39→21:52)
[2021-02-19 08:00] VITALS: BP 176/81
[2021-02-19 08:21] LABS: CHLORIDE 97 mEq/L (98-107)
[2021-02-19 08:41] LABS: HEMOGLOBIN. 10.3 g/dL (12.0-16.0); MEAN CORPUSCULAR HEMOGLOBIN 30.9 pg (28.0-32.0); MEAN CORPUSCULAR VOLUME 90.4 fL (81.0-99.0); PLATELET 380 x1000/uL (130-400); RED BLOOD CELL COUNT 3.32 mill/uL (4.2-5.4); RED CELL DISTRIBUTION WIDTH 14.6 % (11.6-14.6)
[2021-02-19] MEDS: AMLODIPINE 5MG TABLET PO SCH (09:00)
[2021-02-19] MEDS: LOSARTAN POTASSIUM 25 MG TABLET PO SCH (09:00)
[2021-02-19] MEDS: METOPROLOL TARTRATE 25MG TABLET NG SCH ×2 (09:00→12:14)
[2021-02-19] MEDS ORDERED: IOHEXOL-300 100 ML BOTTLE ONE (09:26)
[2021-02-19] MEDS: PANTOPRAZOLE SODIUM 40 MG/VIAL IV SCH ×2 (10:37→21:51)
[2021-02-19 12:00] VITALS: BP 156/77
[2021-02-19] MEDS: NITROGLYCERIN OINT 1GM/INCH UDPKT TD SCH ×2 (12:13→16:42)
[2021-02-19 16:00] VITALS: BP 150/76
[2021-02-19 20:00] VITALS: BP 145/81
[2021-02-19] MEDS: INSULIN GLARGINE UD 100 UNITS/ML SYR SUBCUT SCH (22:59)
[2021-02-20] VITALS: BP 139/80
[2021-02-20] MEDS: NITROGLYCERIN OINT 1GM/INCH UDPKT TD SCH ×2 (01:56→09:59)
[2021-02-20 04:00] VITALS: BP 155/90
[2021-02-20] MEDS: BLOOD SUGAR DIAGNOSTIC STRIP TEST SCH ×2 (06:12→13:00)
[2021-02-20] MEDS: METOCLOPRAMIDE HCL 10MG/2ML VIAL IV SCH ×2 (06:27→12:59)
[2021-02-20] MEDS: INSULIN LISPRO 100 UNITS/ML SUBCUT SCH ×2 (06:31→12:40)
[2021-02-20 07:31] LABS: PLATELET ESTIMATE NORMAL
[2021-02-20 08:00] VITALS: BP 163/91
[2021-02-20] MEDS ORDERED: CEFAZOLIN 1000MG PREMIX 50 ML IV SCH (09:00)
[2021-02-20] MEDS: LEVETIRACETAM 500MG PREMIX 100 ML IV SCH (09:58)
[2021-02-20] MEDS: AMLODIPINE 5MG TABLET PO SCH (09:59)
[2021-02-20] MEDS: PANTOPRAZOLE SODIUM 40 MG/VIAL IV SCH (09:59)
[2021-02-20] MEDS: METOPROLOL TARTRATE 25MG TABLET NG SCH (09:59)
[2021-02-20] MEDS: CLONIDINE 0.1MG TABLET PO PRN (10:10)
[2021-02-20] MEDS: IPRATROPIUM/ALBUTEROL 0.5-3(2.5)MG/3ML NEB HHN SCH (10:23)
[2021-02-20 11:12] LABS: HEMATOCRIT. 33.1 % (36.0-48.0); HEMOGLOBIN. 10.7 g/dL (12.0-16.0); MEAN CORPUSCULAR HEMOGLOBIN 29.9 pg (28.0-32.0); MEAN CORPUSCULAR VOLUME 92.1 fL (81.0-99.0); MEAN PLATELET VOLUME 8.7 fl (7.4-10.4); PLATELET 487 x1000/uL (130-400); RED BLOOD CELL COUNT 3.59 mill/uL (4.2-5.4); RED CELL DISTRIBUTION WIDTH 14.7 % (11.6-14.6)
[2021-02-20 11:21] LABS: INR 1.2; PROTHROMBIN TIME 12.6 sec (9.6-11.0)
[2021-02-20 11:52] LABS: BG BASE EXCESS 6.3 mmol/L (-2.0-2.0); BG CARBOXYHEMOGLOBIN 0.3 % (0.5-1.5); BG DEOXYHEMOGLOBIN 1.4 % (0.0-5.0); BG FRACTION INSPIRED OXYGEN 99.8; BG HCO3 ACT 32.3 mmol/L (22.0-26.0); BG OXYGEN SATURATION 98.6 % (92.0-98.5); BG OXYHEMOGLOBIN 98.3 % (94.0-97.0); BG PCO2 53.4 mmHg (35.0-45.0); BG PH 7.399 (7.350-7.450); BG PO2 294.3 mmHg (75.0-100.0); BG SAMPLE SITE RIGHT RADIAL; BG TOTAL HEMOGLOBIN 10.8 g/dL (12.0-18.0); BG VENT MODE MASK - NRB
[2021-02-20 12:00] VITALS: BP 128/68
[2021-02-20 12:15] LABS: CHLORIDE 98 mEq/L (98-107)
[2021-02-20] MEDS: LOSARTAN POTASSIUM 25 MG TABLET PO SCH (12:59)
[2021-02-20] MEDS ORDERED: PIPERACILLIN/TAZOBACTAM 3.375 G in DEXTROSE 5% WATER 50 ML IV SCH (14:00)
[2021-02-20] MEDS ORDERED: MORPHINE SULFATE 250 MG in DEXT 5% WATER 225 ML IV PRN (15:00)
[2021-02-20 16:00] VITALS: BP 100/69
[2021-02-20 20:00] VITALS: BP 103/60
[2021-02-21] VITALS (7 sets, daily range): BP systolic 79–124; BP diastolic 49–61
[2021-02-21] LABS: PLATELET ESTIMATE INCREASED
[2021-02-21 07:42] LABS: HEMOGLOBIN. 9.6 g/dL (12.0-16.0); MEAN CORPUSCULAR HEMOGLOBIN 30.3 pg (28.0-32.0); MEAN CORPUSCULAR VOLUME 91.4 fL (81.0-99.0); MEAN PLATELET VOLUME 8.8 fl (7.4-10.4); PLATELET 342 x1000/uL (130-400); RED BLOOD CELL COUNT 3.17 mill/uL (4.2-5.4); RED CELL DISTRIBUTION WIDTH 14.4 % (11.6-14.6)
[2021-02-21 07:45] LABS: INR 1.5; PROTHROMBIN TIME 15.2 sec (9.6-11.0)
[2021-02-21 10:48] LABS: PLATELET ESTIMATE NORMAL
[2021-02-22 03:12] VITALS: BP 116/61
[2021-02-22 08:00] VITALS: BP 114/61
[2021-02-22 12:00] VITALS: BP 115/58
[2021-02-22 16:00] VITALS: BP 120/63
[2021-02-22 20:00] VITALS: BP_SYST 123; BP_SYST 98; BP_DIAS 54; BP_DIAS 64
[2021-02-23] VITALS: BP 123/64
== END 2021-02-23 04:15 | DRG 853 ==
LOC: ER 22:58 → MICUSO 02-05 05:53 → EDBEDREQTM 02-05 07:09 → EDBEDREQ 02-05 07:09 → EDBEDREQTM 02-05 07:40 → EDBEDREQSVC 02-05 07:40 → SUPCPDRO 02-05 07:44 → ENRESERV 02-05 08:10 → 8WST 02-18 15:00
PROVIDERS: ADMIT Internal Medicine; ATTEND Internal Medicine
PROC: 009630Z Drainage of Cerebral Ventricle with Drainage Device, Percutaneous Approach (ICD-10-PCS; principal; 2021-02-05)
PROC: 02HV33Z Insertion of Infusion Device into Superior Vena Cava, Percutaneous Approach (ICD-10-PCS; 2021-02-05)
PROC: B548ZZA Ultrasonography of Superior Vena Cava, Guidance (ICD-10-PCS; 2021-02-05)
PROC: 009630Z Drainage of Cerebral Ventricle with Drainage Device, Percutaneous Approach (ICD-10-PCS; 2021-02-15)
PROC: 00160J6 Bypass Cerebral Ventricle to Peritoneal Cavity with Synthetic Substitute, Open Approach (ICD-10-PCS; 2021-02-15)
DX: A41.59 Other Gram-negative sepsis (principal); G92.8 Other toxic encephalopathy; G93.6 Cerebral edema; J96.90 Respiratory failure, unspecified, unspecified whether with hypoxia or hypercapnia; R40.20 Unspecified coma; J69.0 Pneumonitis due to inhalation of food and vomit; G91.9 Hydrocephalus, unspecified; N39.0 Urinary tract infection, site not specified; Z66 Do not resuscitate; E77.8 Other disorders of glycoprotein metabolism; F03.90 Unspecified dementia, unspecified severity, without behavioral disturbance, psychotic disturbance, mood disturbance, and anxiety; I10 Essential (primary) hypertension; R65.20 Severe sepsis without septic shock; J43.9 Emphysema, unspecified; Z20.822 Contact with and (suspected) exposure to COVID-19; Z90.49 Acquired absence of other specified parts of digestive tract
CPT/HCPCS: 36415; 36600; 70496; 70498; 71045; 74018; 74177; 76937; 80048; 80053; 80061; 80305; 80320; 81003; 82375; 82550; 82553; 82607; 82746; 82805; 82962; 83036; 83540; 83550; 83605; 83735; 83880; 84100; 84443; 84484; 85025; 86850; 86900; 87077; 87186; 87426; 92610; 93005; 93306; 93880; 94002; 94640; 99285; A6261; C1725; C1750; C9113; J0690; J0696; J1100; J1580; J1815; J1953; J1956; J2150; J2250; J2270; J2370; J2405; J2543; J2704; J2710; J2765; J3010; J3475; J3480; J3490; J7040; J7050; J7060; J7120; Q9967; A4315; G0480